=== PATIENT | female | born 1990 | race Caucasian/White ===

== ENCOUNTER 2024-07-20 17:57 | Emergency (ER) | payer MEDICAID, OTHER ==
[~2024-07-20] VITALS: Ht 149.9 cm; Wt 61.8 kg
[~2024-07-20 17:57] MED LIST: DSS100 PO; FERR-72 PO; IBUP-1492 PO; PERCT PO; PREN-61 PO
[2024-07-20 18:49] LABS: BASOPHILS % (AUTO) 0.4 % (0.0-2.0); HEMATOCRIT 40.3 % (36-46); LYMPHOCYTES # (AUTO) 3.1 K/uL (1.0-4.8); MEAN CORPUSCULAR HGB CONC 32.3 G/dL (31.0-37.0); MEAN CORPUSCULAR VOLUME 87 fL (80-100); MONOCYTES # (AUTO) 0.6 K/uL (0.1-1.0); MONOCYTES % (AUTO) 5.2 % (2.0-9.0); NEUTROPHILS # (AUTO) 8.2 K/uL (1.8-7.7); NEUTROPHILS % (AUTO) 66.4 % (40.0-70.0); PLATELET COUNT (AUTO) 346 K/uL (150-450); RED BLOOD CELL COUNT(AUTO) 4.65 MIL/uL (4.00-5.20); RED CELL DISTRIBUTION WIDTH 13.6 % (11.5-14.5); WHITE BLOOD COUNT (AUTO) 12.3 K/uL (4.5-11.0)
[2024-07-20 18:58] LABS: ALANINE AMINOTRANSFERASE 27 U/L (12-78); ALKALINE PHOSPHATASE 109 U/L (46-116); ANION GAP 10 mmol/L (8-16); ASPARTATE AMINOTRANSFERASE 23 U/L (15-37); BILIRUBIN,TOTAL 0.3 mg/dL (0.1-1.0); CALCIUM, TOTAL 9.1 mg/dL (8.8-10.5); CARBON DIOXIDE 27 mmol/L (22-29); CHLORIDE 102 mmol/L (98-107); CREATININE 0.58 mg/dL (0.60-1.30); GLOMERULAR FILTR. RATE CALC > 60 mL/min (>60); GLUCOSE,RANDOM 78 mg/dL (70-110); LIPASE 31 U/L (16-77); SODIUM SERUM 139 mmol/L (136-145); TOTAL PROTEIN, SERUM 7.8 g/dL (6.4-8.2); UREA NITROGEN, BLOOD 17 mg/dL (7-18)
[2024-07-20] MEDS: POTASSIUM CHLORIDE 20 MEQ ER TABLET PO ONE (20:46)
[2024-07-20] MEDS: IOHEXOL 9 MG/ML 500 ML BOTTLE PO ONE (20:47)
[2024-07-20] MEDS: KETOROLAC TROMETHAMINE 30 MG/ML VIAL IVP ONE (20:48)
[2024-07-20] MEDS: SODIUM CHLORIDE 0.9% 1,000 ML IV ONE (20:55)
[2024-07-20] MEDS ORDERED: IOHEXOL 350 MG/ML 100 ML VIAL ONE (21:14)
[2024-07-20] MEDS ORDERED: SODIUM CHLORIDE 0.9% 100 ML ONE (21:14)
[2024-07-20 22:03] LABS: APPEARANCE,URINE CLEAR (CLEAR); BILIRUBIN,URINE NEGATIVE (NEGATIVE); COLOR,URINE COLORLESS (YELLOW); GLUCOSE, URINE (UA) NEGATIVE (NEGATIVE); KETONES,URINE NEGATIVE (NEGATIVE); LEUKOCYTE ESTERASE ,URINE NEGATIVE (NEGATIVE); NITRATE,URINE NEGATIVE (NEGATIVE); OCCULT BLOOD,URINE NEGATIVE (NEGATIVE); PH,URINE 6.5 (5.0-8.0); PROTEIN,URINE NEGATIVE (NEGATIVE); SPECIFIC GRAVITIY, URINE 1.004 (1.003-1.030); UROBILINOGEN,URINE <=1.0 mg/dL (<=1.0)
[2024-07-20] MEDS ORDERED: IBUP-1554 PO (22:13)
[2024-07-20] MEDS ORDERED: ACET-2080 PO (22:13)
[2024-07-20 22:21] LABS: RBC,URINE 0-2 /HPF (0-2)
[2024-07-20 22:22] LABS: BACTERIA,URINE None Seen /HPF (None Seen); SQUAMOUS EPITHELIAL CELL,UR Few /LPF (None Seen); WBC,URINE None Seen /HPF (0-5)
[2024-07-20] MEDS: ACETAMINOPHEN/CODEINE 300-30 MG TABLET PO ONE (22:39)
[2024-07-20 22:40] VITALS: BP 119/68; PULSE 79; RESP 18; TEMP 97.3; O2SAT 99
== END 2024-07-20 22:44 | disposition home or self-care (01) ==
LOC: EMS 17:57
DX: N83.201 Unspecified ovarian cyst, right side (principal); R10.31 Right lower quadrant pain; F17.210 Nicotine dependence, cigarettes, uncomplicated; Z90.49 Acquired absence of other specified parts of digestive tract; Z98.51 Tubal ligation status
CPT/HCPCS: 99285; 74177; 96374; 96361; 80048; 80076; 81001; 83690; 84703; 85025; 36415; Q9967 ×2; J1885; J7030; J7050

== ENCOUNTER 2024-07-21 13:52 | Emergency (ER) | payer OTHER ==
[~2024-07-21] VITALS: Ht 157.5 cm; Wt 61.4 kg
[~2024-07-21 13:52] MED LIST changes: +ACET-2080 PO; +IBUP-1554 PO
[2024-07-21 14:08] VITALS: BP 97/68; PULSE 83; RESP 18; TEMP 98.4; O2SAT 98
== END 2024-07-21 17:03 | disposition home or self-care (01) ==
LOC: EMS 13:52
DX: N83.201 Unspecified ovarian cyst, right side (principal); R19.03 Right lower quadrant abdominal swelling, mass and lump; F17.210 Nicotine dependence, cigarettes, uncomplicated; Z90.49 Acquired absence of other specified parts of digestive tract
CPT/HCPCS: 76700; 76856; 99284; Z7502